=== PATIENT | male | born 1940 | race Caucasian/White ===

== ENCOUNTER → 2017-07-21 | Outpatient (CLI) | payer MEDICARE, BC ==
--- NOTE | 2017-07-22 08:19 | CT ---
EXAMINATION TYPE: CT abdomen pelvis wo con DATE OF EXAM: 07/21/2017 COMPARISON: 10/10/2012 HISTORY: Pelvic pain with occasional nausea CT DLP: 457.8 mGycm Examination of the solid and hollow viscera is limited given the lack of contrast. FINDINGS: LUNG BASES: No evidence for nodule. No evidence for infiltrate. LIVER/GB: The gallbladder is contracted. Probable subcentimeter cyst anterior segment right hepatic l obe. PANCREAS: No pancreatic mass identified. No inflammatory process seen. SPLEEN: No evidence for splenomegaly. No intrasplenic lesions seen. ADRENALS: No adrenal nodules identified. No evidence for thickening. KIDNEYS: No evidence for renal mass. No nephrolithiasis. No hydronephrosis. Urinary bladder wall thic kening although there is less than ideal distention of the urinary bladder. BOWEL: Appendix has a normal appearance. No evidence of bowel obstruction. No inflammatory process. M oderate sigmoid diverticulosis without diverticulitis at this time. Lymph nodes: No evidence for adenopathy greater than 1 cm. Abdominal aorta: Atheromatous changes seen. No evidence for aneurysm. Genital organs: The prostate gland is enlarged.. Other: No significant abnormality. IMPRESSION: 1. MODERATE SIGMOID DIVERTICULOSIS. 2. URINARY BLADDER WALL THICKENING LIKELY RELATED TO LESS THAN IDEAL DISTENTION VERSUS CYSTITIS. 3. PROBABLE SMALL CYST WITHIN THE LIVER.
== END | disposition home or self-care (01) ==
LOC: RADCTMAIN 17:57
PROVIDERS: ATTEND Family Medicine
DX: K57.30 Diverticulosis of large intestine without perforation or abscess without bleeding (principal); N32.89 Other specified disorders of bladder
CPT/HCPCS: 74176

== ENCOUNTER → 2017-10-29 | Outpatient (CLI) | payer MEDICARE, BC ==
--- NOTE | 2017-10-29 11:49 | XR ---
EXAMINATION TYPE: XR lumbosacral spine min 4V DATE OF EXAM: 10/29/2017 COMPARISON: NONE HISTORY: 77-year-old male low back pain TECHNIQUE: 5 views FINDINGS: 5 lumbar type vertebral bodies. Facet arthropathy mid to lower lumbar spine. Mild degenerative disc disease throughout with endplate spondylosis and mild disc space narrowing. Overall alignment is maintained vertebral body heights are preserved. Abdomen scattered calcifications of the abdominal aorta with borderline aneurysm of the upper abdomin al aorta at 3 cm. IMPRESSION: [id number] multilevel degenerative disc disease. Hypertrophic facet arthropathy mid to lower andrey mbar spine. No vertebral compression collapse or malalignment. Borderline aneurysm upper abdominal aorta at 3.0 cm.
== END | disposition home or self-care (01) ==
LOC: RADXRMAIN 09:31
PROVIDERS: ATTEND Family Medicine
DX: M51.36 Other intervertebral disc degeneration, lumbar region (principal); M46.96 Unspecified inflammatory spondylopathy, lumbar region
CPT/HCPCS: 72110

== ENCOUNTER → 2017-12-31 | Outpatient (CLI) | payer MEDICARE, BC ==
--- NOTE | 2017-12-31 14:04 | US ---
EXAMINATION TYPE: US duplex aorta DATE OF EXAM: 12/31/2017 COMPARISON: CT CLINICAL HISTORY: I71.4 Abdominal Aortic Aneurysm Without Rupture; patient stated has calf and foot c ramps at night x 1 year EXAM MEASUREMENTS: Abdominal Aorta: Proximal: 2.2cm Transverse Mid: 2.1cm Transverse Distal: 2.1cm Transverse Bifurcation: 1.4cm Transverse Right TATE; 1.5cm Transverse Left TATE Intimal wall thickening is noted mid and distal aorta and into bilateral TATE. IMPRESSION: 1. Normal abdominal aortic aneurysm by ultrasound.
== END | disposition home or self-care (01) ==
LOC: RADUSWWP 08:35
PROVIDERS: ATTEND Family Medicine
DX: I71.4 Abdominal aortic aneurysm, without rupture (principal); R25.2 Cramp and spasm
CPT/HCPCS: 93922; 93979

== ENCOUNTER → 2018-07-03 | Outpatient (CLI) | payer MEDICARE, BC ==
--- NOTE | 2018-07-03 13:28 | MR ---
EXAMINATION TYPE: MR lumbar spine wo con DATE OF EXAM: 07/03/2018 COMPARISON: NONE HISTORY: Chronic back pain TECHNIQUE: T1 and T2 axial and sagittal images of the lumbar spine are submitted. FINDINGS: There is no abnormal signal seen within the visualized spinal cord or paraspinal soft tissu es. Simple appearing left renal cysts noted. At L1-2 there is vertebral body hemangioma of L1. Circumferential disc bulging and hypertrophic harris e and ligamentum flavum facets but no canal stenosis. There does appear to be a very tiny area of abn ormal signal paracentrally right extending superior direction posterior to the L1 vertebral body high ly suspicious for a tiny extruded disc fragment measuring approximately 5 x 2 mm. At L2-3 there is diffuse circumferential disc bulging with broad-based central disc protrusion. Hyper trophy of the facets and ligamentum flavum result in borderline to mild central stenosis and mild toby ateral foraminal encroachment. At L3-4 there is degenerative disc disease with broad-based disc herniation greater paracentrally to left. There likely is some compression of the left exiting nerve root. There is moderate central sten osis. Facet arthropathy and ligamentum flavum contribute. Mild right-sided foraminal encroachment. At L4-5 there is degenerative disc disease with marked ligamentum flavum hypertrophy and facet arthro evaristo. Broad-based central disc bulging is seen and there is moderate central stenosis with bilateral foraminal encroachment. Grade 1 anterolisthesis appears degenerative. At L5-S1 there is severe degenerative disc disease. There is a broad-based central and right paracent ral disc protrusion. There is facet arthropathy. No central stenosis. Mild bilateral foraminal encroa chment. IMPRESSION: 1. Disc bulging and hypertrophic changes at L1-L2. However, there is a 5 x 2 mm area of abnormal sign al extending superiorly and posterior to the lower margin of the L1 vertebral body paracentrally to t he right highly suspicious for a tiny extruded disc fragment. 2. Multilevel degenerative disc disease with most marked findings at L5-S1. Multilevel facet arthropa thy also noted with grade 1 anterolisthesis L4 on L5. 3. Disc protrusion or herniations at L2-3, L3-4, L4-5, resulting in canal stenosis and foraminal encr oachment. 4. Broad-based central and right paracentral disc protrusion L5-S1 but no canal stenosis. Mild bilate ral foraminal encroachment. 5. There is a 3.1 cm infrarenal abdominal aortic aneurysm is new from the CT scan of 07/21/2017
== END ==
LOC: RADMRIMAIN 12:37
PROVIDERS: ATTEND Family Medicine
DX: M48.061 Spinal stenosis, lumbar region without neurogenic claudication (principal); M43.16 Spondylolisthesis, lumbar region; M51.27 Other intervertebral disc displacement, lumbosacral region; M51.37 Other intervertebral disc degeneration, lumbosacral region; M46.96 Unspecified inflammatory spondylopathy, lumbar region
CPT/HCPCS: 72148

== ENCOUNTER → 2018-07-15 | Outpatient (CLI) | payer MEDICARE, BC ==
[2018-07-15 15:13] LABS: T4, Free (Free Thyroxine) 0.76 ng/dL (0.78-2.19)
[2018-07-15 18:43] LABS: Protein, Total 6.8 g/dL (6.2-8.2)
[2018-07-16 00:39] LABS: Hemoglobin A1C 6.6 % (4.0-6.0)
[2018-07-16 10:01] LABS: Albumin 4.01 g/dL (3.80-4.90); Gamma Globulin 1.06 g/dL (0.70-1.50)
[2018-07-17 13:12] LABS: Lyme IgG/IgM 0.2 Index
== END ==
LOC: LABWHC1 13:32
PROVIDERS: ATTEND Psychiatry & Neurology Neurology
DX: G62.9 Polyneuropathy, unspecified (principal)
CPT/HCPCS: 36415; 82550; 82607; 82747; 83036; 84165; 84439; 84443; 85652; 86038; 86618

== ENCOUNTER → 2019-07-19 | Outpatient (CLI) | payer MEDICARE, BC ==
[2019-07-19 12:07] LABS: Basophils % (A) 1 %; Eosinophils # (A) 0.1 k/uL (0-0.7); Eosinophils % (A) 1 %; HCT 42.2 % (39.0-53.0); HGB 13.9 gm/dL (13.0-17.5); Lymphocytes # (A) 1.1 k/uL (1.0-4.8); Lymphocytes % (A) 24 %; MCH 30.8 pg (25.0-35.0); MCHC 32.9 g/dL (31.0-37.0); MCV 93.6 fL (80.0-100.0); Mean Platelet Volume 5.5; Monocytes # (A) 0.3 k/uL (0-1.0); Monocytes % (A) 5 %; Neutrophils # (A) 3.2 k/uL (1.3-7.7); Neutrophils % (A) 67 %; Platelet Count 232 k/uL (150-450); RBC 4.51 m/uL (4.30-5.90); RDW 13.3 % (11.5-15.5); WBC 4.8 k/uL (3.8-10.6)
[2019-07-19 16:40] LABS: African American GFR (CKD) 66.7 (60.0-200.0); Albumin 3.9 g/dL (3.80-4.90); Albumin/Globulin Ratio 1.86 (1.60-3.17); BUN/Creat Ratio 13.33 Ratio (12.00-20.00); Calcium 9.5 mg/dL (8.7-10.3); Globulin 2.1 g/dL (1.6-3.3); Non-African American GFR(CKD) 57.6 (60.0-200.0); Potassium 4.4 mmol/L (3.5-5.5); Total Bilirubin 0.3 mg/dL (0.3-1.2)
[2019-07-19 20:14] LABS: Hemoglobin A1C 6.3 % (4.0-6.0)
== END | disposition home or self-care (01) ==
LOC: LABWHC1 10:43
PROVIDERS: ATTEND Family Medicine
DX: G30.9 Alzheimer's disease, unspecified (principal); M79.10 Myalgia, unspecified site; R25.2 Cramp and spasm; R73.09 Other abnormal glucose; M79.642 Pain in left hand; M79.641 Pain in right hand
CPT/HCPCS: 36415; 80053; 83036; 85025; 85379

== ENCOUNTER 2019-09-08 19:37 | Emergency (ER) | payer MEDICARE, BC ==
[2019-09-08 19:42] VITALS: BP 156/85; PULSE 67; RESP 18; TEMP 97.9
[2019-09-08] MEDS ORDERED: DIPH,PERTUS(ACELL)TETVAC-LF 0.5 ML VIAL IM ONE (20:04)
[2019-09-08] MEDS ORDERED: CEPHALEXIN 500 MG CAP PO STA (20:04)
--- NOTE | 2019-09-08 20:18 | XR ---
EXAMINATION TYPE: XR hand limited LT DATE OF EXAM: 09/08/2019 COMPARISON: NONE HISTORY: Pain TECHNIQUE: Three views are submitted. FINDINGS: Laceration and comminuted fracture tuft distal phalanx first digit. Metallic density along the remain ing portion of the epidermis represents foreign body. Remaining osseous structures intact. Arthropath y of the first carpal metacarpal joint. IMPRESSION: 1. Correlate for partial amputation soft tissues and tuft distal phalanx first digit with small forei gn body and comminuted fracture.
[2019-09-08] MEDS ORDERED: KETOROLAC 30 MG/ML 1 ML VIAL IM STA (20:26)
[2019-09-08] MEDS ORDERED: GELATIN SPONGE,ABSORB (LARGE) 1 EACH SPONGE TOPICAL STA (20:35)
--- NOTE | 2019-09-08 20:40 | ED ---
Upper Extremity HPI <Jan Stanton - Last Filed: 09/08/19 20:49> - General Source: patient Mode of arrival: ambulatory Limitations: no limitations <Radha Alexander - Last Filed: 09/08/19 23:16> - General Chief Complaint: Extremity Injury, Upper Stated Complaint: Left Thumb injury Time Seen by Provider: 09/08/19 19:52 - History of Present Illness Initial Comments: Patient is a 78-year-old male presenting to the emergency Department with an injury to his left thumb. Patient states he was using a woodwind reeds cutter when the grinder operator automatic took the piece of bolt he was holding onto and he got his left thumb into the grinder operator automatic. Patient was able to control the bleeding. Patient denies being on blood thinner. Patient does not remember his last tetanus vaccine. Patient states his pain is minimal at this time. Patient has no other complaints at this time. Upon arrival to the ER, vital signs are stable. (Radha Alexander) - Related Data Home Medications Medication Instructions Recorded Confirmed Doxazosin [Cardura] 4 mg PO HS 08/15/14 06/08/18 Memantine [Namenda] 28 mg PO HS 08/15/14 06/08/18 Omeprazole [PriLOSEC] 20 mg PO HS 08/15/14 06/08/18 Previous Rx's Medication Instructions Recorded Cephalexin [Keflex] 500 mg PO Q6HR 5 Days #20 cap 09/08/19 Allergies Allergy/AdvReac Type Severity Reaction Status Date / Time No Known Allergies Allergy Verified 06/07/18 23:04 Review of Systems ROS Other: All systems not noted in ROS Statement are negative. <Jan Stanton - Last Filed: 09/08/19 20:49> ROS Other: All systems not noted in ROS Statement are negative. <Radha Alexander - Last Filed: 09/08/19 23:16> ROS Statement: Those systems with pertinent positive or pertinent negative responses have been documented in the HPI. Past Medical History Past Medical History: Coronary Artery Disease (CAD), Dementia, GERD/Reflux, Hyperlipidemia, Hypertension, Osteoarthritis (OA), Renal Disease, Sleep Apnea/CPAP/BIPAP Additional Past Medical History / Comment(s): Chronic low back pain, hiatal hernia status post repair History of Any Multi-Drug Resistant Organisms: None Reported Past Surgical History: Heart Catheterization, Hernia Repair Additional Past Surgical History / Comment(s): Colonoscopy, EGD. HIATAL HERNIA REPAIR. Past Anesthesia/Blood Transfusion Reactions: No Reported Reaction Past Psychological History: No Psychological Hx Reported Smoking Status: Never smoker Past Alcohol Use History: None Reported Past Drug Use History: None Reported - Past Family History Father Family Medical History: Coronary Artery Disease (CAD) Mother Family Medical History: No Reported History Brother(s) Family Medical History: Unable to Obtain Sister(s) Family Medical History: COPD, Coronary Artery Disease (CAD) Daughter(s) Family Medical History: No Reported History <Radha Alexander - Last Filed: 09/08/19 23:16> General Exam Limitations: no limitations <Radha Alexander - Last Filed: 09/08/19 23:16> - General Exam Comments Initial Comments: GENERAL: Well-appearing, well-nourished and in no acute distress. HEAD: Atraumatic, normocephalic. EYES: Pupils equal round and reactive to light, extraocular movements intact, sclera anicteric, conjunctiva are normal. ENT: Moist mucous membranes. NECK: Normal range of motion, supple without lymphadenopathy or JVD. LUNGS: Breath sounds clear to auscultation bilaterally and equal. No wheezes rales or rhonchi. HEART: Regular rate and rhythm without murmurs, rubs or gallops. EXTREMITIES: Patient has a partial amputation of the left tip of the thumb distal to the IP joint. There is full nail avulsion. Patient has full motion of the IP joint. Bleeding is controlled at this time. SKIN: Warm, Dry, normal turgor, no rashes. (Radha Alexander) Course <Jan Stanton - Last Filed: 09/08/19 20:49> Vital Signs 09/08/19 19:39 Temperature 97.9 F Pulse Rate 67 Respiratory 18 Rate Blood Pressure 156/85 O2 Sat by Pulse 99 Oximetry - Reevaluation(s) Reevaluation #1: 09/08/19 20:49 PA supervision: I proceeded [id number] evaluation the patient he did injure his left thumb on a grinder operator automatic prior to arrival here. Does demonstrate a macerated distal phalanx also the nail. X-rays do show evidence of a comminuted fracture of the tuft. Patient will be bundled and follow up with Dr. Bar who is seen in the past \for arthritis in his other hand. (Jan Stanton) Medical Decision Making <Radha Alexander - Last Filed: 09/08/19 23:16> - Medical Decision Making Patient is 78-year-old male presenting with a partial amputation of the left to the thumb. There is full nail avulsion. Bleeding is controlled at this time. X-rays reveal a partial amputation soft tissues and tough distal phalanx first digit comminuted fracture. Patient's wound was irrigated with 1 L of sterile water and Betadine. Gelfoam was applied to the wound and bandaged. Patient was also given first dose of antibiotic while in the ER. Patient will follow up with orthopedics tomorrow morning. Patient will continue with Keflex for open fracture. Patient will keep bandage clean and dry. Patient is stable for discharge at this time and he is in agreement with this plan of care. Return parameters were discussed with the patient he verbalizes understanding. Case discussed with Dr. Stanton who agrees with this plan of care. (Radha Alexander) Disposition <Jan Stanton - Last Filed: 09/08/19 20:49> Is patient prescribed a controlled substance at d/c from ED?: No <Radha Alexander - Last Filed: 09/08/19 23:16> Clinical Impression: Partial traumatic amputation of left thumb through phalanx, Fracture of distal phalanx of left thumb Disposition: HOME SELF-CARE Condition: Stable Instructions (If sedation given, give patient instructions): Thumb Fracture (ED) Additional Instructions: Please return to the Emergency Department if symptoms worsen or any other concerns. Follow-up with orthopedics tomorrow as discussed. Keep dressing dry and intact. Take antibiotics as prescribed. Prescriptions: Cephalexin [Keflex] 500 mg PO Q6HR 5 Days #20 cap Referrals: Maximino Batista DO [Primary Care Provider] - 1-2 days Pepe Bar DO [Doctor of Osteopathic Medicine] - 1-2 days
[2019-09-08] MEDS ORDERED: GELATIN SPONGE,ABSORB (SMALL) 1 EACH SPONGE TOPICAL STA (20:55)
== END 2019-09-08 21:20 | disposition home or self-care (01) ==
LOC: EC 19:37
DX: S68.022A Partial traumatic metacarpophalangeal amputation of left thumb, initial encounter (principal); I10 Essential (primary) hypertension; I25.10 Atherosclerotic heart disease of native coronary artery without angina pectoris; F03.90 Unspecified dementia, unspecified severity, without behavioral disturbance, psychotic disturbance, mood disturbance, and anxiety; K21.9 Gastro-esophageal reflux disease without esophagitis; G47.30 Sleep apnea, unspecified; Z79.899 Other long term (current) drug therapy; Z95.818 Presence of other cardiac implants and grafts; Z23 Encounter for immunization; Z99.89 Dependence on other enabling machines and devices; W31.89XA Contact with other specified machinery, initial encounter; Y93.89 Activity, other specified; Y92.009 Unspecified place in unspecified non-institutional (private) residence as the place of occurrence of the external cause
CPT/HCPCS: 73120; 90715; 99283; 90471; 96372; J1885

== ENCOUNTER → 2020-03-08 | Outpatient (CLI) | payer MEDICARE, BC | END | disposition home or self-care (01) | LOC: LABWHC1 13:30 | PROVIDERS: ATTEND Family Medicine | DX: Z03.818 Encounter for observation for suspected exposure to other biological agents ruled out (principal); Z20.828 Contact with and (suspected) exposure to other viral communicable diseases | CPT/HCPCS: 83036 ==

== ENCOUNTER → 2020-09-01 | Outpatient (CLI) | payer MEDICARE, BC ==
--- NOTE | 2020-09-02 03:01 | MR ---
EXAMINATION TYPE: MR lumbar spine wo con DATE OF EXAM: 09/01/2020 COMPARISON: 07/03/2018 HISTORY: Lower back pain that radiates down both sides x2 years, prev MRI on pacs Multiplanar multiecho imaging of the lumbar spine was performed without contrast. Lumbar vertebra fairly normal alignment. There is 8 2 mm subluxation at L4-5 and L5-S1. There is narr owing of disc spaces from L3 to S1. There is moderate posterior disc herniation at L3-4 with elevatio n of the posterior longitudinal ligament. There is a mild spinal stenosis at L3-4. There is L4-5 late ral recess stenosis due to facet arthropathy. There is mild posterior disc bulging at L4-5 and L5-S1. There is no compression fracture. There is no lumbar paraspinal mass. Sacroiliac joints appear intact. IMPRESSION: There is some mild spinal stenosis at L3-4 which is new compared to old exam. There is disc herniatio n at L3-4 increased. No fracture seen. Small posterior disc herniations at L4-5 and L5-S1 are slightl y increased compared to old exam.
== END | disposition home or self-care (01) ==
LOC: RADMRIMAIN 21:33
PROVIDERS: ATTEND Orthopaedic Surgery Orthopaedic Surgery of the Spine
DX: M48.061 Spinal stenosis, lumbar region without neurogenic claudication (principal); M48.062 Spinal stenosis, lumbar region with neurogenic claudication; M51.26 Other intervertebral disc displacement, lumbar region; M43.16 Spondylolisthesis, lumbar region; M51.36 Other intervertebral disc degeneration, lumbar region; M47.26 Other spondylosis with radiculopathy, lumbar region
CPT/HCPCS: 72148

== ENCOUNTER → 2021-10-29 | Outpatient (CLI) | payer MEDICARE, BC ==
--- NOTE | 2021-10-30 06:43 | NM ---
EXAMINATION TYPE: NM bone scan whole body DATE OF EXAM: 10/29/2021 COMPARISON: Prior Whole body bone scan 2013 HISTORY: OA/DJD. Low back pain. Delayed whole-body scanning was performed following the injection of 23.0 mCi Tc 99m MDP. Images acq uired 4.25 hours post injection. FINDINGS: Mild symmetric uptake bilateral knee joints. This is felt to be a product of degenerative change is r edemonstrated. Symmetric increased uptake bilateral sternoclavicular joints favoring degenerative susana nge redemonstrated. New mild focus of increased uptake at the lumbosacral junction corresponds to deg enerative changes on recent MRI 2019 in the lower lumbar spine. This is new from 2014 bone scan. No s uspicious radiotracer uptake to suggest metastatic disease to the bone. IMPRESSION: As above.
== END | disposition home or self-care (01) ==
LOC: RADNMMAIN 10:04
PROVIDERS: ATTEND Family Medicine
DX: M19.90 Unspecified osteoarthritis, unspecified site (principal)
CPT/HCPCS: 78306; A9503

== ENCOUNTER → 2021-11-20 | Outpatient (CLI) | payer MEDICARE, BC ==
[2021-11-20 16:14] LABS: Basophils % (A) 1 %; Eosinophils # (A) 0.1 k/uL (0-0.7); Eosinophils % (A) 2 %; HGB 10.5 gm/dL (13.0-17.5); Lymphocytes % (A) 21 %; MCH 31.4 pg (25.0-35.0); MCHC 32.8 g/dL (31.0-37.0); MCV 95.5 fL (80.0-100.0); Mean Platelet Volume 7.2; Monocytes # (A) 0.3 k/uL (0-1.0); Monocytes % (A) 6 %; Neutrophils # (A) 3.2 k/uL (1.3-7.7); Neutrophils % (A) 69 %; Platelet Count 260 k/uL (150-450); RBC 3.35 m/uL (4.30-5.90); RDW 14.4 % (11.5-15.5); WBC 4.7 k/uL (3.8-10.6)
[2021-11-20 16:33] LABS: ALT 33 U/L (4-49); AST 24 U/L (17-59); African American GFR (CKD) 64 (>60 ml/min/1.73 sqM); Albumin 3.9 g/dL (3.5-5.0); Albumin/Globulin Ratio 1.3; Alkaline Phosphatase 56 U/L (38-126); Anion Gap 6 mmol/L; Blood Urea Nitrogen 26 mg/dL (9-20); Calcium 9.4 mg/dL (8.4-10.2); Carbon Dioxide 24 mmol/L (22-30); Chloride 109 mmol/L (98-107); Globulin 2.9 g/dL; Glucose 97 mg/dL (74-99); Non-African American GFR(CKD) 56 (>60 ml/min/1.73 sqM); Potassium 4.4 mmol/L (3.5-5.1); Sodium 139 mmol/L (137-145); Total Bilirubin 0.5 mg/dL (0.2-1.3); Total Protein 6.8 g/dL (6.3-8.2)
== END | disposition home or self-care (01) ==
LOC: LABWHC1 15:52
PROVIDERS: ATTEND Family Medicine
DX: R60.0 Localized edema (principal)
CPT/HCPCS: 36415; 80053; 83880; 84484; 85025; 85379

== ENCOUNTER → 2021-11-22 | Outpatient (CLI) | payer MEDICARE, BC ==
--- NOTE | 2021-11-22 14:10 | US ---
EXAMINATION TYPE: US venous doppler duplex LE DATE OF EXAM: 11/22/2021 1:47 PM COMPARISON: NONE CLINICAL HISTORY: 81-year-old male R79.1 elevated d dimer. Bilateral legs ache. Abnormal labs. SIDE PERFORMED: Bilateral TECHNIQUE: The lower extremity deep venous system is examined utilizing real time linear array sonog vicki with graded compression, doppler sonography and color-flow sonography. FINDINGS: VESSELS IMAGED: Common Femoral Vein Deep Femoral Vein Greater Saphenous Vein * Femoral Vein Popliteal Vein Small Saphenous Vein * Proximal Calf Veins (* superficial vessels) Right Leg: Negative for DVT Left Leg: Negative for DVT IMPRESSION: No evidence for DVT within the bilateral lower extremities imaged from the groin to the upper calf.
== END | disposition home or self-care (01) ==
LOC: RADUSWWP 13:25
PROVIDERS: ATTEND Family Medicine
DX: R79.1 Abnormal coagulation profile (principal); M79.605 Pain in left leg; M79.604 Pain in right leg
CPT/HCPCS: 93970

== ENCOUNTER → 2021-12-06 | Outpatient (CLI) | payer MEDICARE, BC ==
--- NOTE | 2021-12-06 17:00 | ECHOF ---
Referral Reason:I10 HTN MEASUREMENTS -------- HEIGHT: 147.3 cm WEIGHT: 70.3 kg BP: RVIDd: 3.5 cm (< 3.3) IVSd: 1.2 cm (0.6 - 1.1) LVIDd: 5.3 cm (3.9 - 5.3) LVPWd: 1.3 cm (0.6 - 1.1) IVSs: 1.6 cm LVIDs: 4.5 cm LVPWs: 1.7 cm LA Diam: 4.0 cm (2.7 - 3.8) LAESV Index (A-L): 42.92 ml/m Ao Diam: 2.9 cm (2.0 - 3.7) AV Cusp: 1.2 cm (1.5 - 2.6) LA Diam: 4.2 cm (2.7 - 3.8) MV EXCURSION: 14.577 mm (> 18.000) MV EF SLOPE: 60 mm/s (70 - 150) EPSS: 1.1 cm MV E Jaspreet: 0.81 m/s MV DecT: 221 ms MV A Jaspreet: 1.07 m/s MV E/A Ratio: 0.75 AV maxP.46 mmHg AV meanP.02 mmHg RAP: 5.00 mmHg RVSP: 49.46 mmHg FINDINGS -------- Sinus rhythm. This was a technically good study. The left ventricular size is normal. There is mild concentric left ventricular hypertrophy. Overa ll left ventricular systolic function is mildly impaired with, an EF between 45 - 50 %. The right ventricle is normal in size. LA is severely dilated >40 ml/m2 The right atrial size is normal. There is no evidence of aortic stenosis. Peak/mean gradient across the Aortic Valve is 24.46mmHg / 12.02mmHg. Mild mitral regurgitation is present. Mild tricuspid regurgitation present. There is moderate pulmonary hypertension. The right ventric ular systolic pressure, as measured by Doppler, is 49.46mmHg. There is no pulmonic regurgitation present. There is a small, generalized pericardial effusion present. CONCLUSIONS -------- 1. The left ventricular size is normal. 2. There is mild concentric left ventricular hypertrophy. 3. Overall left ventricular systolic function is mildly impaired with, an EF between 45 - 50 %. 4. The right ventricle is normal in size. 5. LA is severely dilated >40 ml/m2 6. The right atrial size is normal. 7. There is no evidence of aortic stenosis. 8. Peak/mean gradient across the Aortic Valve is 24.46mmHg / 12.02mmHg. 9. Mild mitral regurgitation is present. 10. Mild tricuspid regurgitation present. 11. There is moderate pulmonary hypertension. 12. The right ventricular systolic pressure, as measured by Doppler, is 49.46mmHg. 13. There is no pulmonic regurgitation present. 14. There is a small, generalized pericardial effusion present. [employer]: Regi Wolfe RDCS
== END | disposition home or self-care (01) ==
LOC: RADECHMAIN 11:27
PROVIDERS: ATTEND Family Medicine
DX: I11.9 Hypertensive heart disease without heart failure (principal); I08.1 Rheumatic disorders of both mitral and tricuspid valves; I27.20 Pulmonary hypertension, unspecified
CPT/HCPCS: 93306

== ENCOUNTER → 2021-12-14 | Outpatient (CLI) | payer MEDICARE, BC ==
--- NOTE | 2021-12-14 08:33 | XR ---
EXAMINATION TYPE: XR knee complete RT, XR tibia fibula RT DATE OF EXAM: 12/14/2021 CLINICAL HISTORY: Trip and fall injury with pain TECHNIQUE: Three views of the right knee are obtained. 2 views of the right tibia and fibula. COMPARISON: None. FINDINGS: There is no acute fracture/dislocation evident in right knee. Moderate to severe narrowing patellofemoral compartment with mild spurring. Moderate narrowing with mild to moderate spurring med ial tibial femoral compartment. Meniscal calcification is present. There is moderate-sized suprapatel lar joint effusion. There is at least moderate posterior arterial vascular calcification. Images of the right leg show no acute displaced fracture. Overlying clothing material is seen. There is mild to moderate spurring at level of ankle joint. There is mild to moderate diffuse subcutaneous edema with moderate to severe arterial vascular calcification. IMPRESSION: There is no acute fracture or dislocation in the right leg or knee.
== END | disposition home or self-care (01) ==
LOC: RADXRMAIN 08:03
PROVIDERS: ATTEND Family Medicine
DX: M25.561 Pain in right knee (principal); M79.604 Pain in right leg; S89.91XA Unspecified injury of right lower leg, initial encounter; W01.0XXA Fall on same level from slipping, tripping and stumbling without subsequent striking against object, initial encounter

== ENCOUNTER → 2021-12-31 | Outpatient (CLI) | payer MEDICARE, BC ==
--- NOTE | 2021-12-31 11:31 | XR ---
EXAMINATION TYPE: XR cervical spine comp 6 views DATE OF EXAM: 12/31/2021 COMPARISON: 10/30/2010 HISTORY: 81-year-old male in 5 4.2, cervicalgia, fall one week ago. TECHNIQUE: 6 views FINDINGS: There is a 1.4 x 0.5 cm focus of heterotopic ossification along the posterior mid to lower neck at th e C6 level. Facet and uncovertebral joint arthropathy mid to lower cervical spine. Patient has a neck flexed. No predental space widening or prevertebral soft tissue swelling. Moderate degenerative disc disease low er cervical spine. There is degenerative grade 1 anterolisthesis C4-C5, new from 2010. The cervicotho racic junction is obscured by the patient's shoulders and not assessed. On the left, minimal bony shadi ral foraminal narrowing C5-C6. On the right, more moderate to severe bony neural foraminal narrowing at C3-C4 and mild at C5-C6. IMPRESSION: 1. The patient shows unusual flexion of the neck, new from 2010. At the cervicothoracic junction is o bscured by the patient's shoulders, consider further CT cervical spine evaluation. 2. New degenerative grade 1 anterolisthesis at C4-C5 compared to 2011. 3. Moderate degenerative disc disease lower cervical spine. Scattered facet and uncovertebral joint a rthropathy. 4. There appears to be a moderate to severe neuroforaminal narrowing on the right at C3-C4.
== END | disposition home or self-care (01) ==
LOC: RADXRMAIN 10:56
PROVIDERS: ATTEND Family Medicine
DX: M43.12 Spondylolisthesis, cervical region (principal); M50.321 Other cervical disc degeneration at C4-C5 level; M47.812 Spondylosis without myelopathy or radiculopathy, cervical region; M99.71 Connective tissue and disc stenosis of intervertebral foramina of cervical region
CPT/HCPCS: 72050

== ENCOUNTER → 2022-01-08 | Outpatient (CLI) | payer MEDICARE, BC ==
--- NOTE | 2022-01-09 21:19 | MR ---
EXAMINATION TYPE: MR cervical spine wo con DATE OF EXAM: 01/08/2022 COMPARISON: Radiograph 12/31/2021 HISTORY: 81-year-old male Neck pain and back pain for 3 weeks TECHNIQUE: Multiplanar, multisequence images of the cervical spine were acquired without contrast. FINDINGS: There is extensive motion artifact on the images. The technologist reports that the patient is having leg tremors and neck pain/spasms with heavy breathing. Patient is unable to control the extra moveme nts. No craniocervical junction abnormality, predental space widening, or prevertebral soft tissue swellin g. There is degenerative grade 1 anterolisthesis C4-C5 and C6-C7. Remaining alignment is maintained. No suspicious bone marrow replacement. Mild to moderate multilevel degenerative disc disease with desiccated discs and disc osteophyte compl ex formation. Mild to moderate disc space narrowing at C6-C7. Additional multilevel ligamentum flavum thickening, greatest in the mid cervical spine along with mul tilevel hypertrophic facet and uncovertebral joint arthropathy. At C2-C3, mild posterior disc bulge is present. No significant canal or foraminal stenosis. At C3-C4, posterior disc bulge and ligamentum flavum thickening. This contributes to mild narrowing o f the canal. Uncovertebral joint and facet arthropathy with a mild left neuroforaminal stenosis. At C4-C5, diffuse disc bulge with superimposed right paracentral protrusion. Ligamentum flavum thicke courtney. Facet and uncovertebral joint arthropathy with grade 1 anterolisthesis. There is effacement of both the dorsal and ventral CSF signal at this level with AP canal dimension of 5 mm. Flattening of t he ventral cord. Moderate to severe focal spinal canal stenosis. Unable to adequately assess the neur oforamen due to the degree of motion on the axial series. At C5-C6, disc bulge with ligamentum flavum thickening. There is mild overall narrowing of the spinal canal with abutment of the ventral cord but no cord flattening. Uncovertebral joint and facet arthro evaristo. Unable to adequately assess the neural foramen on either side due to the degree of motion. At C6-C7, central, right paracentral disc protrusion with uncovertebral joint and facet arthropathy. There is focal indentation and flattening of the ventral cord with mild spinal canal stenosis. Dorsal CSF signal is maintained. No cord compression. Unable to adequately assess the neuroforamen due to a rtifact. At C7-T1, no spinal canal stenosis. Neuroforamen may be mildly narrowed on both sides on the sagittal series. Extensive artifact projects over cord. Unable to adequately assess for any increased T2 cord signal. IMPRESSION: 1. Markedly motion degraded exam. There is moderate multilevel degenerative disc disease with ligamen cirilo flavum thickening and multilevel facet/uncovertebral joint arthropathy. 2. Degenerative grade 1 anterolisthesis C4-C5 and C6/C7. 3. There appears to be a focal moderate to severe spinal canal stenosis at C4-C5 (AP canal dimension of 5 mm) secondary to disc osteophyte complex and hypertrophied ligamentum flavum. There is abutment of both the dorsal and ventral cord and ventral cord indentation. Assessment for cord signal abnormal ity is nondiagnostic due to the extensive motion. 4. Additional levels of mild spinal canal narrowing as outlined above. Assessment of most of the neur oforamina is nondiagnostic due to the extent of motion.
== END | disposition home or self-care (01) ==
LOC: RADMRIMAIN 11:37
PROVIDERS: ATTEND Orthopaedic Surgery Orthopaedic Surgery of the Spine
DX: M50.30 Other cervical disc degeneration, unspecified cervical region (principal); M48.02 Spinal stenosis, cervical region; M47.812 Spondylosis without myelopathy or radiculopathy, cervical region; M25.78 Osteophyte, vertebrae; M43.12 Spondylolisthesis, cervical region
CPT/HCPCS: 72141

== ENCOUNTER 2022-01-18 17:55 | Emergency (ER) | payer MEDICARE, BC ==
[~2022-01-18 17:55] MED LIST: SODIUM CHLORIDE 0.9% 1,000 ML IV STA
[2022-01-18] MEDS ORDERED: PANTOPRAZOLE 40 MG/10 ML VIAL IVP ONE (17:59)
[2022-01-18] MEDS ORDERED: fentaNYL (PF) 50 MCG/ML 2 ML AMP IV ONE (18:00)
[2022-01-18] MEDS ORDERED: ASPIRIN 81 MG PO STA (18:03)
--- NOTE | 2022-01-18 18:06 | ED ---
General Adult HPI - General Chief complaint: Chest Pain Stated complaint: GI Bleed Source: EMS - History of Present Illness Initial comments: Dictation was produced using [employer] dictation software. please excuse any grammatical, word or spelling errors. Chief Complaint: 81-year-old male presents emergency department for chest pain and GI bleed History of Present Illness: An 81-year-old male who is brought in as a priority one from EMS. Patient was at home when he started to have severe GI bleed. EMS reports that there was approximate 500 mL of clotted blood in the toilet bowl when they went to pick the patient up. Patient reports that he has chest pain. Describes it as a pressure is nonradiating. Complains of tingling to his extremities. Denies that the pain as sharp or that it radiated to the back. It's not associated diaphoresis but it is associated with clamminess. Patient denies any history of GI bleed or cardiac history. Patient denies any anticoagulation medications. Prehospital EKG showed ST segment elevation DC. The ROS documented in this emergency department record has been reviewed and confirmed by me. Those systems with pertinent positive or negative responses have been documented in the HPI. All other systems are other negative and/or noncontributory. PHYSICAL EXAM: General Impression: Alert and oriented x3, pale, complaining of chest pressure HEENT: Normocephalic atraumatic, extra-ocular movements intact, pupils equal and reactive to light bilaterally, mucous membranes moist. Cardiovascular: Heart regular rate and rhythm Chest: Able to complete full sentences, no retractions, no tachypnea Abdomen: abdomen soft, non-tender, non-distended, no organomegaly Musculoskeletal: Pulses present and equal in all extremities, no peripheral edema Motor: no focal deficits noted Neurological: CN II-XII grossly intact, no focal motor or sensory deficits noted Skin: Intact with no visualized rashes Psych: Normal affect and mood Rectal exam: There is gross blood on rectal exam, no obvious source of bleeding ED course: 81-year-old male presents to emergency Department for GI bleed and ST segment elevation DC. Patient is having signs and symptoms of both. Prior to patient's arrival I did speak with cardiology who recommends that we evaluate agents blood work before cath activation. Prehospital EKG was reviewed showing large ST elevations in anterior septal leads with reciprocal changes in the inferior leads. Patient was received in trauma bay #2 were EKG was performed showing similar findings. Patient is not a immediate candidate for cardiac catheterization given that there is concern for myocardial infarction secondary to massive GI bleed. Patient did have blood in the rectal vault. Central venous catheter line was placed in the right groin. Patient then had of episode of coffee-ground emesis. Nasogastric tube was placed. Over the course of 20-30 minutes there was 300 mL of coffee ground emesis that was aspirated from the stomach. Patient complaining of right nuñez pain. Patient has palpable pulses to all extremities that are symmetrical. Patient given a rectal aspirin. Patient started on low- dose pressors and massive transfusion protocol was activated.EKG interpretation: Ventricular rate 55, A. fib with slow ventricular response, QRS 107, QTC 395. Large ST elevations in V2 through V6 upper cervical changes in the inferior leads. Case was rediscussed with Dr. Parker of cardiology reports the patient is not a ca ndidate for cardiac cath activation or panic coagulation medication at this time. We do not have GI coverage at this time. Patient be transferred to [facility]. Patient given 80 mg of IV Protonix. 6:53 PM: Patient had a day been given 4 units of massive transfusion blood. Repeat EKG shows improvement of EKG changes. Patient states that his symptoms feel improved. 8:03pm: Patient was tends to be transferred to outside facility. [facility] was not calling back within a reasonable time. We were able to speak with [facility] transfer line however they requested that patient have more stable vitals. Patient had a ready been given 4 units of all positive blood per massive transfusion with improvement of his blood pressure. Patient started on low-dose norepinephrine with improvement of blood pressure. After having been given some narcotic medications blood pressure began to decrease slightly. Patient was given Narcan with slight improvement of blood pressure. Recontacted Nivia from transfer line who will check back with her plant chief. Patient is reevaluated again at bedside 8:00 PM. He does have further bleeding identified from his nasogastric tube and rectally. Patient ordered for 2 more units of blood. He is also started on vasopressin. He is given ceftriaxone, tranexamic acid. 8:13pm: Nivia from transfer line called back and informed me that patient will be accepted. I was putting contact w Dr. Byrne who is willing to accept the patient for ER to ER transfer. Case was discussed in detail. - Related Data Home Medications Medication Instructions Recorded Confirmed Doxazosin [Cardura] 4 mg PO HS 08/15/14 06/08/18 Memantine [Namenda] 28 mg PO HS 08/15/14 06/08/18 Omeprazole [PriLOSEC] 20 mg PO HS 08/15/14 06/08/18 Previous Rx's Medication Instructions Recorded Cephalexin [Keflex] 500 mg PO Q6HR 5 Days #20 cap 09/08/19 Allergies Allergy/AdvReac Type Severity Reaction Status Date / Time No Known Allergies Allergy Verified 06/07/18 23:04 Review of Systems ROS Statement: Those systems with pertinent positive or pertinent negative responses have been documented in the HPI. ROS Other: All systems not noted in ROS Statement are negative. Past Medical History Past Medical History: Coronary Artery Disease (CAD), Dementia, GERD/Reflux, Hyperlipidemia, Hypertension, Osteoarthritis (OA), Renal Disease, Sleep Apnea/CPAP/BIPAP Additional Past Medical History / Comment(s): Chronic low back pain, hiatal hernia status post repair History of Any Multi-Drug Resistant Organisms: None Reported Past Surgical History: Heart Catheterization, Hernia Repair Additional Past Surgical History / Comment(s): Colonoscopy, EGD. HIATAL HERNIA REPAIR. Past Anesthesia/Blood Transfusion Reactions: No Reported Reaction Past Psychological History: No Psychological Hx Reported Smoking Status: Current some day smoker Past Alcohol Use History: None Reported Past Drug Use History: None Reported - Past Family History Father Family Medical History: Coronary Artery Disease (CAD) Mother Family Medical History: No Reported History Brother(s) Family Medical History: Unable to Obtain Sister(s) Family Medical History: COPD, Coronary Artery Disease (CAD) Daughter(s) Family Medical History: No Reported History Course Vital Signs 01/18/22 01/18/22 01/18/22 17:57 18:13 18:16 Temperature Pulse Rate 58 L 58 L 62 Respiratory 20 14 16 Rate Blood Pressure 96/62 83/53 93/48 O2 Sat by Pulse 100 98 97 Oximetry 01/18/22 01/18/22 01/18/22 18:28 18:30 18:45 Temperature 95 F L 97 F L 97 F L Pulse Rate 57 L 61 56 L Respiratory 16 16 16 Rate Blood Pressure 85/70 107/68 109/58 O2 Sat by Pulse 100 99 Oximetry 01/18/22 01/18/22 01/18/22 18:53 19:01 19:13 Temperature Pulse Rate 56 L 56 L 55 L Respiratory 16 16 14 Rate Blood Pressure 114/62 121/75 61/43 O2 Sat by Pulse 96 99 100 Oximetry 01/18/22 19:31 Temperature Pulse Rate 51 L Respiratory 14 Rate Blood Pressure 75/51 O2 Sat by Pulse 100 Oximetry Procedures - Central Line Placement Right Femoral Consent Obtained: verbal consent, emergent situation Patient Placed on Monitor/Pulse Ox: Yes Prep: mask, gown, gloves Central Line Prep: Chlorhexidine scrub Local Anesthesia Used: Lidocaine 1%, with Epi Ultrasound Used for Placement: Yes Central Line Lumen Inserted: triple Bloods Obtained for Lab: No Central Line Position: good blood return, all ports aspirated, flushed, capped, sutured in place with 3-0 nylon Dressing Applied: Tegaderm Post Procedure X-Ray: tip of catheter in good position Patient Tolerated Procedure: well Medical Decision Making - Lab Data Result diagrams: 01/18/22 18:05 01/18/22 18:05 Lab Results 01/18/22 01/18/22 01/18/22 Range/Units 18:05 18:05 18:05 WBC 10.2 (3.8-10.6) k/uL RBC 2.37 L (4.30-5.90) m/uL Hgb 7.1 L D (13.0-17.5) gm/dL Hct 22.7 L (39.0-53.0) % MCV 95.7 (80.0-100.0) fL MCH 30.1 (25.0-35.0) pg MCHC 31.4 (31.0-37.0) g/dL RDW 14.2 (11.5-15.5) % Plt Count 313 (150-450) k/uL MPV 6.9 Neutrophils % 85 % Lymphocytes % 10 % Monocytes % 4 % Eosinophils % 1 % Basophils % 0 % Neutrophils # 8.6 H (1.3-7.7) k/uL Lymphocytes # 1.0 (1.0-4.8) k/uL Monocytes # 0.4 (0-1.0) k/uL Eosinophils # 0.1 (0-0.7) k/uL Basophils # 0.0 (0-0.2) k/uL PT 11.5 (9.0-12.0) sec INR 1.1 (<1.2) APTT 23.3 (22.0-30.0) sec Sodium 136 L (137-145) mmol/L Potassium 6.2 H* (3.5-5.1) mmol/L Chloride 111 H (98-107) mmol/L Carbon Dioxide 22 (22-30) mmol/L Anion Gap 3 mmol/L BUN 68 H (9-20) mg/dL Creatinine 2.36 H (0.66-1.25) mg/dL Est GFR (CKD-EPI)AfAm 29 (>60 ml/min/1.73 sqM) Est GFR (CKD-EPI)NonAf 25 (>60 ml/min/1.73 sqM) Glucose 137 H (74-99) mg/dL Plasma Lactic Acid Troy (0.7-2.0) mmol/L Calcium 7.2 L (8.4-10.2) mg/dL Magnesium 2.2 (1.6-2.3) mg/dL Total Bilirubin 0.4 (0.2-1.3) mg/dL AST 23 (17-59) U/L ALT 27 (4-49) U/L Alkaline Phosphatase 36 L (38-126) U/L Troponin I (0.000-0.034) ng/mL NT-Pro-B Natriuret Pep pg/mL Total Protein 4.7 L (6.3-8.2) g/dL Albumin 2.4 L (3.5-5.0) g/dL Lipase 158 (23-300) U/L Stool Occult Blood (Negative) Blood Type Blood Type Recheck Bld Type Recheck Status Antibody Screen Spec Expiration Date 01/18/22 01/18/22 01/18/22 Range/Units 18:05 18:05 18:05 WBC (3.8-10.6) k/uL RBC (4.30-5.90) m/uL Hgb (13.0-17.5) gm/dL Hct (39.0-53.0) % MCV (80.0-100.0) fL MCH (25.0-35.0) pg MCHC (31.0-37.0) g/dL RDW (11.5-15.5) % Plt Count (150-450) k/uL MPV Neutrophils % % Lymphocytes % % Monocytes % % Eosinophils % % Basophils % % Neutrophils # (1.3-7.7) k/uL Lymphocytes # (1.0-4.8) k/uL Monocytes # (0-1.0) k/uL Eosinophils # (0-0.7) k/uL Basophils # (0-0.2) k/uL PT (9.0-12.0) sec INR (<1.2) APTT (22.0-30.0) sec Sodium (137-145) mmol/L Potassium (3.5-5.1) mmol/L Chloride (98-107) mmol/L Carbon Dioxide (22-30) mmol/L Anion Gap mmol/L BUN (9-20) mg/dL Creatinine (0.66-1.25) mg/dL Est GFR (CKD-EPI)AfAm (>60 ml/min/1.73 sqM) Est GFR (CKD-EPI)NonAf (>60 ml/min/1.73 sqM) Glucose (74-99) mg/dL Plasma Lactic Acid Troy 1.4 (0.7-2.0) mmol/L Calcium (8.4-10.2) mg/dL Magnesium (1.6-2.3) mg/dL Total Bilirubin (0.2-1.3) mg/dL AST (17-59) U/L ALT (4-49) U/L Alkaline Phosphatase (38-126) U/L Troponin I 1.620 H* (0.000-0.034) ng/mL NT-Pro-B Natriuret Pep 4670 pg/mL Total Protein (6.3-8.2) g/dL Albumin (3.5-5.0) g/dL Lipase (23-300) U/L Stool Occult Blood (Negative) Blood Type Blood Type Recheck Bld Type Recheck Status Antibody Screen Spec Expiration Date 01/18/22 01/18/22 Range/Units 18:05 18:05 WBC (3.8-10.6) k/uL RBC (4.30-5.90) m/uL Hgb (13.0-17.5) gm/dL Hct (39.0-53.0) % MCV (80.0-100.0) fL MCH (25.0-35.0) pg MCHC (31.0-37.0) g/dL RDW (11.5-15.5) % Plt Count (150-450) k/uL MPV Neutrophils % % Lymphocytes % % Monocytes % % Eosinophils % % Basophils % % Neutrophils # (1.3-7.7) k/uL Lymphocytes # (1.0-4.8) k/uL Monocytes # (0-1.0) k/uL Eosinophils # (0-0.7) k/uL Basophils # (0-0.2) k/uL PT (9.0-12.0) sec INR (<1.2) APTT (22.0-30.0) sec Sodium (137-145) mmol/L Potassium (3.5-5.1) mmol/L Chloride (98-107) mmol/L Carbon Dioxide (22-30) mmol/L Anion Gap mmol/L BUN (9-20) mg/dL Creatinine (0.66-1.25) mg/dL Est GFR (CKD-EPI)AfAm (>60 ml/min/1.73 sqM) Est GFR (CKD-EPI)NonAf (>60 ml/min/1.73 sqM) Glucose (74-99) mg/dL Plasma Lactic Acid Troy (0.7-2.0) mmol/L Calcium (8.4-10.2) mg/dL Magnesium (1.6-2.3) mg/dL Total Bilirubin (0.2-1.3) mg/dL AST (17-59) U/L ALT (4-49) U/L Alkaline Phosphatase (38-126) U/L Troponin I (0.000-0.034) ng/mL NT-Pro-B Natriuret Pep pg/mL Total Protein (6.3-8.2) g/dL Albumin (3.5-5.0) g/dL Lipase (23-300) U/L Stool Occult Blood Positive (Negative) Blood Type A Negative Blood Type Recheck No Previous Record Bld Type Recheck Status CABO Indicated Antibody Screen NEGATIVE Spec Expiration Date 01/21/2022 - 1675 Critical Care Time Critical Care Time: Yes Total Critical Care Time: 75 Disposition Clinical Impression: STEMI (ST elevation myocardial infarction), GI bleed, Hemorrhagic shock Disposition: OTHER INSTITUTION NOT DEFINED Condition: Critical Referrals: Maximino Batista DO [Primary Care Provider] - 1-2 days - Out of Hospital Transfer - Req. Specs Out of Hospital Transfer - Requested Specifics: Other Emergency Center ([facility])
[2022-01-18] MEDS ORDERED: ASPIRIN 300 MG SUPP RECTAL STA (18:07)
[2022-01-18 18:16] LABS: Basophils % (A) 0 %; Eosinophils # (A) 0.1 k/uL (0-0.7); Eosinophils % (A) 1 %; HCT 22.7 % (39.0-53.0); Lymphocytes % (A) 10 %; MCH 30.1 pg (25.0-35.0); MCHC 31.4 g/dL (31.0-37.0); MCV 95.7 fL (80.0-100.0); Mean Platelet Volume 6.9; Monocytes # (A) 0.4 k/uL (0-1.0); Monocytes % (A) 4 %; Neutrophils # (A) 8.6 k/uL (1.3-7.7); Neutrophils % (A) 85 %; Platelet Count 313 k/uL (150-450); RBC 2.37 m/uL (4.30-5.90); RDW 14.2 % (11.5-15.5); WBC 10.2 k/uL (3.8-10.6)
[2022-01-18] MEDS ORDERED: NOREPINEPHRINE 32 MG in SODIUM CHLORIDE 0.9% 218 ML IV ONE ×2 (18:21→18:35)
[2022-01-18 18:27] LABS: HGB 7.1 gm/dL (13.0-17.5)
[2022-01-18 18:31] LABS: INR 1.1 (<1.2); Partial Thromboplastin Time 23.3 sec (22.0-30.0); Prothrombin Time 11.5 sec (9.0-12.0)
[2022-01-18 18:34] LABS: Albumin 2.4 g/dL (3.5-5.0); Calcium 7.2 mg/dL (8.4-10.2); Magnesium 2.2 mg/dL (1.6-2.3); Total Bilirubin 0.4 mg/dL (0.2-1.3); Total Protein 4.7 g/dL (6.3-8.2)
[2022-01-18] MEDS: NOREPINEPHRINE 32 MG in SODIUM CHLORIDE 0.9% 218 ML IV SCH ×2 (18:40→19:14)
[2022-01-18 18:47] LABS: Potassium 6.2 mmol/L (3.5-5.1)
[2022-01-18] MEDS ORDERED: MORPHINE SULFATE 4 MG/ML SYRINGE IV STA (18:53)
[2022-01-18] MEDS ORDERED: ONDANSETRON 4 MG/2 ML VIAL IVP STA (18:58)
--- NOTE | 2022-01-18 19:46 | XR ---
EXAMINATION TYPE: XR chest 1V portable DATE OF EXAM: 01/18/2022 7:12 PM COMPARISON: Chest radiographs from 06/07/2018 TECHNIQUE: XR chest 1V portable Frontal view of the chest. CLINICAL INDICATION:Male, 81 years old with history of CHEST PAIN; FINDINGS: Lungs/Pleura: Airspace opacities project over the heart. Pulmonary vascularity: Unremarkable. Heart/mediastinum: Cardiomediastinal silhouette is enlarged and stable. Musculoskeletal: No acute osseous pathology. Lines/Tubes: Nasogastric tube with side-port projecting at gastroesophageal junction. IMPRESSION: 1. Nasogastric tube with side-port projecting near the gastroesophageal junction. Consider advanceme nt of 7 cm for optimal placement. 2. Airspace opacities projecting over the heart correlate for pneumonia
[2022-01-18] MEDS ORDERED: cefTRIAXone IN SWFI 1,000 MG/10 ML SYRINGE IVP STA (19:57)
[2022-01-18] MEDS ORDERED: TRANEXAMIC ACID IN NACL,ISO-OS 1,000 MG in SALINE 1 100ML.BAG IV STA ×2 (20:00→20:15)
[2022-01-18] MEDS ORDERED: SODIUM CHLORIDE 0.9% 50 ML with VASOPRESSIN 20 UNIT IVPB SCH ×4 (20:00→20:30)
[2022-01-18 20:27] VITALS: RESP 18
[2022-01-19 02:57] VITALS: BP 99/56; PULSE 64; TEMP 97.9
== END 2022-01-18 21:05 | disposition other institution (70) ==
LOC: EC 17:55
DX: I21.3 ST elevation (STEMI) myocardial infarction of unspecified site (principal); K92.2 Gastrointestinal hemorrhage, unspecified; I10 Essential (primary) hypertension; I25.10 Atherosclerotic heart disease of native coronary artery without angina pectoris; E78.5 Hyperlipidemia, unspecified; M19.90 Unspecified osteoarthritis, unspecified site; F03.90 Unspecified dementia, unspecified severity, without behavioral disturbance, psychotic disturbance, mood disturbance, and anxiety; K21.9 Gastro-esophageal reflux disease without esophagitis; F17.200 Nicotine dependence, unspecified, uncomplicated; Z79.899 Other long term (current) drug therapy
CPT/HCPCS: 96375 ×6; 96374 ×2; 99291 ×2; 99292 ×2; 36556 ×2; 36430 ×2; 36415; 93005; 86900; 86901; 83880; 80053; 83605; 83690; 83735; 84484; 85025; 85610; 85730; 86850; 86920; 82272; 71045; P9016; J2270; J3010; C9113